=== PATIENT | female | born 1990 | race Caucasian/White ===

== ENCOUNTER 2024-11-25 08:17 | Outpatient (REF) | payer BC, SELFPAY ==
[2024-11-25 08:49] LABS: MANUAL DIFF FLAG NO
[2024-11-25 09:07] LABS: Basophils Percent Auto 0.6 % (0-2); Eosinophils Absolute Auto 0.1 X10*3/uL (0.0-0.4); Eosinophils Percent Auto 1.8 % (0-4); Hematocrit 40.6 % (37.0-47.0); Hemoglobin 13.1 g/dl (12.0-16.0); Imm Gran Abs Auto 0.01 X10*3/uL (0.00-0.03); Imm Gran Pct Auto 0.1 % (0.0-0.4); Lymphocytes Absolute Auto 1.9 X10*3/uL (1.2-4.9); Lymphocytes Percent Auto 28.4 % (20-40); Mean Corpuscular HGB Conc 32.3 g/dl (31.0-35.0); Mean Corpuscular Hemoglobin 27.2 pg (27.0-33.0); Mean Corpuscular Volume 84.4 fL (80.0-98.0); Mean Platelet Volume 9.8 fL (9.4-12.3); Monocytes Absolute Auto 0.3 X10*3/uL (0.1-1.2); Monocytes Percent Auto 3.7 % (2-11); Neutrophils Absolute Auto 4.4 x10*3/uL (2.0-8.3); Neutrophils Percent Auto 65.4 % (45-73); Platelet Count 265 X10*3/uL (160-400); Red Blood Count 4.81 X10*6/uL (4.20-5.50); Red Cell Distribution Width 13.9 % (11.0-16.0); White Blood Count 6.7 X10*3/uL (4.8-10.8)
[2024-11-25 09:26] LABS: Estimated Average Glucose 131 mg/dL; Hemoglobin A1c % 6.2 % (<6.0)
[2024-11-25 09:40] LABS: Alanine Aminotransferase 47 U/L (0-31); Albumin Level 4.3 g/dL (3.5-5.0); Alkaline Phosphatase 107 U/L (39-117); Anion Gap 12 (12-20); Aspartate Amino Transferase 27 U/L (5-31); Bilirubin Direct < 0.2 mg/dL (0.0-0.5); Bilirubin Total 0.2 mg/dL (0.0-1.0); Blood Urea Nitrogen 12 mg/dL (9-16); Calcium 9.4 mg/dL (8.4-10.2); Carbon Dioxide 25 mmol/L (22-29); Chloride 110 mmol/L (96-108); Cholesterol 220 mg/dL (<200); Estimated Glomerular Filt Rate > 60; Glucose Random 149 mg/dL (60-115); HDL Cholesterol 34 mg/dL (>40); LDL Cholesterol Calculated 159 mg/dL (<100); Potassium 3.6 mmol/L (3.3-5.1); Sodium 143 mmol/L (135-145); Total Protein 7.7 g/dL (6.5-8.0); Triglycerides 135 mg/dL (<150)
[2024-11-25 09:52] LABS: HIV AB/AG Nonreactive (Nonreactive); HIV Num 1 0.06 S/CO (0.00-0.99); ~HepC Num1 0.13 S/CO (0.00-0.79); ~Hepatitis C Antibody Nonreactive (Nonreactive)
[2024-11-25 09:59] LABS: TSH reflex Free T4 0.57 uIU/mL (0.32-4.0); Vitamin D 25-OH Total 13.9 ng/mL (>30)
[2024-11-25 10:05] LABS: Folate 10.6 ng/mL (> or = 4.0); Vitamin B12 1092 pg/mL (200-900)
[2024-11-25 11:10] LABS: CT PCR NOT DETECTED (Not Detect.); NG PCR NOT DETECTED (Not Detect.)
[2024-11-26 11:33] LABS: DHEA Sulfate 196 mcg/dL (19-237)
[2024-11-28 18:53] LABS: Thyroglobulin Antibodies <1 IU/mL (< or = 1); Thyroid Peroxidase Antibodies <1 IU/mL (<9)
[2024-11-30 23:32] LABS: Testosterone, Total 55 ng/dL (2-45)
== END 2024-11-25 08:18 | disposition home or self-care (01) ==
LOC: HO.LAB 08:17
PROVIDERS: PCP Family Medicine; Visit Provider Family Medicine
DX: E78.5 Hyperlipidemia, unspecified (principal); E28.2 Polycystic ovarian syndrome; R73.03 Prediabetes; F41.8 Other specified anxiety disorders; E53.8 Deficiency of other specified B group vitamins; Z83.49 Family history of other endocrine, nutritional and metabolic diseases; Z13.220 Encounter for screening for lipoid disorders
CPT/HCPCS: 80048; 80061; 80076; 82306; 82607; 82627; 82746; 83036; 84403; 84443; 85025; 86376; 86800; 86803; 87389; 87491; 87591

== ENCOUNTER 2025-03-09 09:52 | Outpatient (REF) | payer BC, SELFPAY ==
--- OUTSIDE RECORDS SUMMARY | 2025-03-09 10:25 | XMS_ITS | Encounter Summary ---
Author Organization [facility] Address [address] [facility] [address] [place] [address] Care Team Providers Care Cargo Trimmer Name Role Phone Dot Pichardo MD Primary Care Provider [phone] Encounter Details Date Type Department Care Team (Late st Contact Info) Description 10/07/2024 Orders Only [facility] [address] [place], [place] [phone] Dot Pichardo MD [address] [place], [place] [phone] Lip lesion (Primary Dx) Social History Tobacco Use Types Packs/Day Years Used Date Smoking Tobacco: Never Smokeless Tobacco: Never Depression Answer Date Recorded Patient Health Questionnaire-9 Score 19 06/15/2024 Patient Health Questionnaire-9 Score 19 06/15/2024 Last PHQ-9: Questionnaire Data Not on file 1 Housing Stability Answer Date Recorded What is your housing situation today? I have queta alxe 06/15/[address] you li ve. Do you have problems with any of the following? None of the above 06/15/2024 Food Insecurity Answer Date Recorded Within the past 12 months, y ou worried that your food would run out before you got money to buy more: Never True 2023 Within the past 12 months,th e food you bought just didn't last and you didn't have enough money to get more: Sometimes True 06/15/2024 Transportation Answer Date Recorded In the past 12 months, has l ack of transportation kept you from medical appts, meetings, work or from getting things needed for daily living? No 06/15/2024 Utilities Answer Date Recorded In the past 12 months, has t he electric, gas, oil or water company threatened to shut off services in your home? No 06/15/2024 Depression Answer Date Recorded Patient Health Questionnaire-2 Score 4 06/15/2024 Internet Access Answer Date Recorded Internet Access Q1 No 06/15/2024 Internet Access Q2 Not on file 06/15/2024 Comments Unknown Sex and Gender Information Value Date Recorded Sex Assigned at Female 02/18/2024 3:17 PM EDT Legal Sex Female 3:12 PM EDT Gender Identity Female 02/18/2024 3:17 PM EDT Sexual Orientation Choose not to disclose 2023 1:06 PM EDT documented as of this encounter Plan of Treatment Not on file documented as of this encounter Visit Diagnoses Diagnosis Lip lesion- Primary Diseases of lips documented in this encounter Additional Health Concerns Assessment Noted Time PHQ-9 Depression Total Score: 19 024 2:20 PM EDT documented as of this encounter Care Teams Cargo Trimmer Relationship Specialty Start Date End Date Dot Pichardo MD [address] [place] [id number] PCP - General Family Medicine 06/15/24 documented as of this encounter
--- OUTSIDE RECORDS SUMMARY | 2025-03-09 10:25 | XMS_ITS | Continuity of Care Document ---
Author Organization [facility] Address [address] [place] [address] Care Team Providers Care Slate Trimmer Name Role Phone Ron Andino MD Primary Care Provider [phone] Encounters Date Type Department Care Team Description 04/29/2021 2:45 PM EDT Office Visit [facility] [address] [place] [phone] Silvana Martínez, CHLOE Right shoulder strain, initial encounter (Primary Dx) 04/05/2021 2:45 PM EDT Radiology [facility] [address] [place] [phone] Injury of right shoulder, initial encounter 04/05/2021 2:15 PM EDT Office Visit [address] [phone] Penny Tomas, BELINDA Otitis externa of left ear, unspecified chronicity, unspecified type (Primary Dx) 04/05/2021 2:00 PM EDT Office Visit [address] [phone] Penny Tomas, DNP Sprain of right shoulder, unspecified shoulder sprain type, initial encounter (Primary Dx) 11/30/2020 Travel 11/30/2020 10:30 AM EDT Office Visit [facility] [address] [place] [phone] Maile Oviedo PA Traumatic injury of head, subsequent encounter (Primary Dx); Concussion without loss of consciousness, subsequent encounter 11/18/2020 11:30 AM EDT Office Visit [address] [phone] Penny Tomas, DNP Concussion without loss of consciousness, initial encounter (Primary Dx); Strain of neck muscle, initial encounter 11/18/2020 Travel 05/21/2020 1:30 PM EDT Radiology [facility] [address] [place] [address] Traumatic injury of rib 05/21/2020 1:15 PM EDT Office Visit [facility] [address] [place] [address] Dyan Ramires NP Traumatic injury of rib (Primary Dx) 05/21/2020 Travel 04/08/2018 2:00 PM EDT Office Visit [facility] [phone] Que Melvin MD Contusion of left shoulder, initial encounter (Primary Dx) 04/27/2017 1:45 PM EDT Office Visit [facility] [address] Que Melvin MD Pre-employment health screening examination (Primary Dx) Allergies No known active allergies Medications Escitalopram Oxalate (LEXAPRO) 20 MG tablet Take 20 mg by mouth 1 (one) time each day 10/12/2020 Active buPROPion HCl ER, SR, (WELLBUTRIN SR) 100 MG 12 hr tablet Take 100 mg by mouth 1 (one) time each day in the morning 10/12/2020 Active Active Problems Problem Noted Date Diagnosed Date PCOS (polycystic ovarian syndrome) 04/05/2021 Overview (04/05/2021): Last Assessment & Plan: Overdue for follow-up with endocrinology, check labs below and instructions to have her call to reestablish care with her specialist. Will contact her in the interim with her test results. IIH (idiopathic intracranial hypertension) 10/16 Hirsutism 08/25/2019 Overview (04/05/2021): Last Assessment & Plan: In association with acne, striae Extensive I rec checking levels of serum androgen concentrations to r/o serious/ rare causes of Hirsutism such as ovarian and adrenal androgen-secreting tumors. Patient advised to continue cosmetic measures, to reduce the hair growth: I may consider Spironolactone while she is on OCP .The side effects of spironolactone include teratogenic effect - discuss with patient that drug therapy is unlikely to completely eliminate hair growth,but that hair may become less coarse, grow more slowly, and require less frequent use of cosmetic methods (shaving, plucking, waxing). - When is desired, all pharmacological treatments for hirsutism must be discontinued. Antiandrogens, in particular, are contraindicated in women trying to conceive because of potential adverse effects on male sexual development. Skin striae 08/25/2019 Overview (04/05/2021): Last Assessment & Plan: In association with buffalo hump, obesity, acne and hirsutism I rec r/o cushings Major depressive disorder, recurrent episode, se martell 11/22/2018 Overview (04/05/2021): Follows philippe Stevens at [facility] follows once a month. Last Assessment & Plan: Overall mood good. She continues to follow with her relationship specialist including routine follow-up with her counselor and psychologist. She follows at [facility] at least once a month. Kindly filling out a PHQ-9 today (7). She reports no sides related to her current regimen. These are prescribed by her relationship specialist, continue with regular follow-up in the interim. Panic disorder 11/22/2018 Tobacco abuse 05/20/2018 Overview (04/05/2021): At baseline generally max 7 cigarettes/day. Longtime smoker but quit for close to a year (cold turkey) several years back. Return for counseling 03/22/2021, latest quit attempt Last Assessment & Plan: She appears motivated and has returned for further counseling. She had not been able to cut back much but is roughly smoking same 7 cigarettes/day. As stated above was successful in quitting for close to a year simply with quitting cold turkey. We went over basic strategies. Discussed pharmacologic aids reviewing nicotine replacement and nonnicotine replacement medications. Already on bupropion which she is taking twice a day. Will have her start nicotine replacement. Set quit date, start nicotine replacement. She does have 21 mg strength patches at home but if able to cut down a bit more can opt for 14 mg strength patch along with as needed nicotine lozenge. Instructions given. Would like for her to return or give an update in 3 to 4 weeks, sooner if she is having difficulty. Counseled on behavioral strategies. Prepare environment. Refer to online resources such as [employer] and discussed various phone apps that can help keep her motivated. Of note, her roommate is also a smoker and in her discussions with her roommate, her roommate has no plans on quitting which may make it difficult for her but discussed strategies to deal with this. Asthenopia of both eyes 01/19/2018 Refractive error 01/19/2018 Chronic insomnia 08/31/2017 Recurrent oral herpes simplex 08/22/2017 Deafness 05/19/2017 Obesity 05/19/2017 Overview (04/05/2021): Last Assessment & Plan: Obesity Class II with severe co-morbidities - Stage 1 2 and abnormal weight gain in the setting of PCOS, infertility Obesity, likely multifactorial, with likely genetic predisposition and unfavorable lifestyle Indeed, the majority of cases are related to social/ behavioral causes. Significant alimentary component from food/portion selection. Froilan Syndrome is very rare cause for obesity, needs to be r/o. Possible metabolic abnormalities related to recent weight gain. The readiness for intensive lifestyle modifications was assessed and the patient appears to be motivated to make changes. Intensive lifestyle modifications were discussed in detail and listed in the patient instructions Ms. Mitchell was advised to start a structural lifestyle modification program focused on reduction simple carbohydrates. Patient will be managed with LSM and medical treatment of obesity. Medical therapy of obesity as adjunct to intensive LSM: GLP-1 agonists was discussed. Ms. Mitchell at high risks for co-morbidities related to obesity, which include, but not limited cardiovascular diseases:CAD, CHF, poor controlled HTN, stroke, respiratory conditions, such CRPD, [place], GI condition: NAFLD and [place] as a concerning start for developing liver cirrhosis, depression, cancers of colon, liver, OPHTHALMIC TECHNOLOGIST system and etc Will obtain labs as listed in the orders to assess for possible metabolic abnormalities related to weight gain An initial weight loss goal of 5 to 7 percent of body weight is realistic .A weight loss of more than 5 percent can reduce risk factors for cardiovascular disease, such as dyslipidemia, hypertension and diabetes mellitus Generalized anxiety disorder 05/19/2017 Immunizations Immunization Administration Dates Next Due COVID-19, mRNA (Pfizer Pre F all 2022) Monovalent, 30 mcg/0.3 ml 10/20/2020,09/29/2020 Influenza,injectable,quad,Prsrv Fr 05/26/2022 Influenza,injectable,quad,preservative 9 PPV23 (Pneumovax) 01/07/2021 Tdap 05/26/2022,09/03/2018 influenza,seasonal,trivalent ,PF (Fluzone, Fluarix, Flulaval) 05/19/2017 Social History Smoking Status as of 03/09/2025 Tobacco Use Types Packs/Day Years Used Date Smoking Tobacco: Never Assessed Intimate Partner Violence Answer Date R ecorded Fear of Current or Ex-Partner Not on file Emotionally Abused Not on file 04/23/2023 Physically Abused Not on file 04/23/2023 Sexually Abused Not on file 04/23/2023 Feel Safe at Home Not on file 04/23/2023 Sex and Gender Information Value Date Recorded Sex Assigned at Not on file Legal Sex Female 11:42 AM EDT Gender Identity Not on file Sexual Orientation Not on file Last Filed Vital Signs Vital Sign Reading Time Taken Comments Blood Pressure 136/62 04/29/2021 2:55 PM EDT Pulse 88 04/29/2021 2:55 PM EDT Temperature 36.7 C (98.1 F) 04/05/2021 1:55 PM EDT Respiratory Rate 16 04/05/2021 1:55 PM EDT Oxygen Saturation 98% 11/18/2020 11:25 AM EDT Inhaled Oxygen Concentration - - Weight - - Height - - Body Mass Index - - Plan of Treatment Not on file Procedures * Due to [place] state law, this organization might not be sharing negative HIV tests. Procedure Name Priority Date/Time Associated Diagnosis Comments XRAY SHOULDER COMPLETE MIN 2 VWS - RIGHT STAT (All results called to provider) 04/05/2021 2:46 PM EDT Injury of right shoulder, initial encounter XRAY RIBS UNILAT; W/ PA CHEST, 3+ VIEWS - LEFT STAT (All results called to provider) 05/21/2020 1:36 PM EDT Traumatic injury of rib Results * Due to [place] [employer] law, this organization might not be sharing negative HIV tests. * XRAY SHOULDER COMPLETE MIN 2 VWS - RIGHT FC (04/05/2021 2:46 PM EDT) Anatomical Region Laterality Modality UPPER EXTREMITY Radiographic Bruna ging 04/05/2021 2:58 PM EDT Narrative 04/05/2021 2:58 PM EDT CONTRAST: 4 views right shoulder Comparison: None Findings: No fractures or dislocations. No significant arthritic change. No radiopaque foreign body. Normal visualized right chest. Impression: 1. Normal right shoulder Procedure Note Mauro Parkinson MD - 04/05/2021 CONTRAST: 4 views right shoulder Comparison: None Findings: No fractures or dislocations. No significant arthritic change. No radiopaque foreign body. Normal visualized right chest. Impression: 1. Normal right shoulder us Penny Tomas DNP IMG XRAY NO CONTRAST ORDERAB LES Final Result * XRAY RIBS UNILAT; W/ PA CHEST, 3+ VIEWS - LEFT FC (05/21/2020 1:36 PM EDT) Anatomical Region Laterality Modality CHEST Radiographic Bruna ging 05/21/2020 1:43 PM EDT Narrative 05/21/2020 1:43 PM EDT EXAM: X-RAY RIBS Comparison: None FINDINGS: Frontal view of the chest and oblique views of the left ribs demonstrate the lungs are clear. There is no focal consolidation, pleural effusion, or pneumothorax. The cardiac and mediastinal silhouettes are normal. Osseous structures are normal without fracture. No rib fracture identified. No lytic or blastic changes are present. IMPRESSION: No acute cardiopulmonary abnormality. No rib fracture identified. Procedure Note Kendra Hughes MD - 05/21/2020 EXAM: X-RAY RIBS Comparison: None FINDINGS: Frontal view of the chest and oblique views of the left ribs demonstratethe lungs are clear. There is no focal consolidation, pleural effusion, or pneumothorax. The cardiac and mediastinal silhouettes are normal. Osseous structures are normal without fracture. No rib fractureidentified. No lytic or blastic changes are present. IMPRESSION: No acute cardiopulmonary abnormality. No rib fracture identified. Dyan Ramires SCREEN PRINTING MACHINE LOADER UNLOADER IMG XRAY NO CONTRAST ORDER TIM Final Result Visit Diagnoses Diagnosis Start Date Pre-employment health screening examination Health examination of defined subpopulation 04/27/2017 Contusion of left shoulder, initial encounter 04/08/2018 Traumatic injury of rib 05/21/2020 Traumatic injury of rib 05/21/2020 Concussion without loss of consciousness, initial encounter 11/18/2020 Strain of neck muscle, initial encounter 11/18/2020 Traumatic injury of head, subsequent encounter 11/30/2020 Concussion without loss of consciousness, subsequent encounter 11/30/2020 Injury of right shoulder, initial encounter 04/05/2021 Otitis externa of left ear, unspecified chronicity, unspecified type 04/05/2021 Sprain of right shoulder, unspecified shoulder sprain type, initial encounter 04/05/2021 Right shoulder strain, initial encounter 04/29/2021 Care Teams Slate Trimmer Relationship Specialty Start Date End Date Ron Andino MD [address] [place] [phone] PCP - General Family Medicine 04/05/21
[2025-03-09 10:53] LABS: Hemoglobin A1C 108.0031 umol/L; Total Hemoglobin (HGBA1C) 3188.2149 umol/L
[2025-03-09 11:13] LABS: Alanine Aminotransferase 47 U/L (0-31); Albumin Level 4.2 g/dL (3.5-5.0); Alkaline Phosphatase 90 U/L (39-117); Anion Gap 11 (12-20); Aspartate Amino Transferase 30 U/L (5-31); Blood Urea Nitrogen 8 mg/dL (9-16); Calcium 8.7 mg/dL (8.4-10.2); Carbon Dioxide 26 mmol/L (22-29); Chloride 108 mmol/L (96-108); Cholesterol 132 mg/dL (<200); Estimated Glomerular Filt Rate > 60; HDL Cholesterol 27 mg/dL (>40); Potassium 3.7 mmol/L (3.3-5.1); Sodium 141 mmol/L (135-145); Total Protein 6.7 g/dL (6.5-8.0); Triglycerides 77 mg/dL (<150)
[2025-03-09 11:35] LABS: Microalbum/Creatinine Ratio Ur 13.8 ug/mg cr (<30)
== END 2025-03-09 09:53 | disposition home or self-care (01) ==
LOC: HO.LAB 09:52
PROVIDERS: PCP Family Medicine; Visit Provider Family Medicine
DX: E78.5 Hyperlipidemia, unspecified (principal); E55.9 Vitamin D deficiency, unspecified; R73.03 Prediabetes; I10 Essential (primary) hypertension
CPT/HCPCS: 36415; 80048; 80061; 80076; 82043; 82306; 82570; 83036; 84402; 84403